=== PATIENT | male | born 1955 | race Asian ===

== ENCOUNTER 2016-05-01 05:52 | Emergency (ER) | payer BC ==
[2016-05-01] MEDS ORDERED: ONDANSETRON 4 MG/2ML 2 ML VIAL ONE (06:41)
[2016-05-01] MEDS ORDERED: SODIUM CHLORIDE 0.9% 1,000 ML ONE (06:42)
[2016-05-01 06:52] LABS: ABSOLUTE NEUTROPHIL COUNT 5.1 K/mm3 (1.8-7.7); BASO % 0.3 % (0.2-1.0); EOS # 0.2 (0.0-0.5); EOS % 2.1 % (0.9-2.9); HEMATOCRIT 48.4 % (32.0-52.0); HEMOGLOBIN 16.2 gm/l (14.0-18.0); IMM NEUT% 0.4 % (0-1); LYMPH # 1.1 (1.0-4.8); LYMPH % 15.1 % (15-45); MEAN CELL VOLUME 83.2 fl (80.0-94.0); MEAN CORPUSCULAR HEMOGLOBIN 27.8 pg (27.0-31.0); MEAN CORPUSCULAR HGB CONC 33.5 g/dl (33.0-37.0); MEAN PLATELET VOLUME 9.3 fl (7.4-10.4); MONO # 0.6 (0.0-0.8); NEUT % 73.1 % (43-75); PLATELET COUNT 285 K/mm3 (130-400); RED CELL DISTRIBUTION WIDTH 12.9 % (11.5-14.5)
[2016-05-01 07:03] LABS: ALB/GLOB RATIO 1.3 (>1.0); ALBUMIN 4.1 gm/dL (3.5-5.7); CALCIUM 8.8 mg/dL (8.6-10.3)
[2016-05-01 07:24] LABS: STOOL FOR OCCULT BLOOD NEGATIVE (NEGATIVE)
[2016-05-01 07:29] LABS: SPECIFIC GRAVITY 1.025 (1.001-1.030); URINE BILIRUBIN NEGATIVE (NEGATIVE); URINE BLOOD 1+ (NEGATIVE); URINE GLUCOSE (UA) 1+ (NEGATIVE); URINE LEUKOCYTE ESTERASE NEGATIVE (NEGATIVE); URINE NITRITE NEGATIVE (NEGATIVE); URINE PROTEIN 1+ (NEGATIVE); URINE UROBILINOGEN NORMAL (0-1 mg/dl)
[2016-05-01] MEDS ORDERED: LOPERAMIDE HCL 2 MG CAPSULE ONE (07:29)
[2016-05-01 07:36] LABS: URINE APPEARANCE CLEAR; URINE COLOR YELLOW
[2016-05-01 07:45] LABS: URINE RBC 0-1 /hpf
[2016-05-01 07:46] LABS: URINE BACTERIA 1+
[2016-05-01 07:54] LABS: C DIFF TOXIN A/B NEGATIVE (NEGATIVE)
[2016-05-01] MEDS ORDERED: FAMOTIDINE 10 MG/ML 2ML VIAL ONE (08:11)
== END 2016-05-01 08:35 | disposition home or self-care (01) ==
LOC: ED 05:52
DX: R19.7 Diarrhea, unspecified (principal); I10 Essential (primary) hypertension; Q21.1 Atrial septal defect; E11.9 Type 2 diabetes mellitus without complications; F17.210 Nicotine dependence, cigarettes, uncomplicated; Z79.4 Long term (current) use of insulin; Z79.01 Long term (current) use of anticoagulants
CPT/HCPCS: 87324; 87449; 85025; 87045; 87046 ×2; 87427; 87086; 80053; 87205; 82270; 81001; 96375; 99283 ×2; 96374; 96361; A9270; J2405; J7030